=== PATIENT | male | born 1975 | race Caucasian/White ===

== ENCOUNTER → 2020-07-17 | Outpatient (CLI) | payer BC ==
[~2020-07-17] MED LIST: DARVOCET N 1001 TAB PO; DAYPRO600 M1 PO
== END | disposition home or self-care (01) ==
LOC: COVID19 14:16
PROVIDERS: ATTEND Student in an Organized Health Care Education/Training Program
DX: Z11.52 Encounter for screening for COVID-19 (principal); Z20.822 Contact with and (suspected) exposure to COVID-19